=== PATIENT | female | born 1975 | race Caucasian/White ===

== ENCOUNTER 2019-05-03 13:25 | Emergency (ER) | payer BC ==
[2019-05-03] MEDS ORDERED: Ketorolac *IM* INJ* 60 MG/2 ML VIAL IM ONE (15:09)
--- NOTE | 2019-05-03 15:09 | UC ---
Throat Pain/Nasal Alexys HPI - HPI Summary HPI Summary: patient thinks she has a migrane and sinus headache---had aura and onset of usual migraine pain but also has pain in left frontal sinus that is worse when she bends over - History of Current Complaint Chief Complaint: UCHeadache Stated Complaint: SINUS COMPLAINT Time Seen by Provider: 05/03/19 14:58 Hx Obtained From: Patient Hx Last Menstrual Period: IUD ?: No Onset/Duration: Sudden Onset, Lasting Days - 3 Pain Intensity: 7 Pain Scale Used: 0-10 Numeric Cough: None Associated Signs & Symptoms: Positive: Sinus Discomfort - Allergies/Home Medications Allergies/Adverse Reactions: Allergies Allergy/AdvReac Type Severity Reaction Status Date / Time No Known Allergies Allergy Verified 05/03/19 13:50 Home Medications: Home Medications Butalb/Acetaminophen/Caffeine [Dlrxof-Zfngtbns-Drsq 50-325-40] 1 each PO Q4H [History Confirmed 05/03/19] PMH/Surg Hx/FS Hx/Imm Hx Previously Healthy: No Neurological History: Migraine - Surgical History Surgical History: Yes Surgery Procedure, Year, and Place: c-sec X1 - Family History Known Family History: Positive: None - Social History Occupation: Employed Full-time Lives: With Family Alcohol Use: Occasionally Substance Use Type: None Smoking Status (MU): Former Smoker Review of Systems All Other Systems Reviewed And Are Negative: Yes Constitutional: Positive: Negative Skin: Positive: Negative Eyes: Positive: Negative ENT: Positive: Nasal Discharge, Sinus Congestion, Sinus Pain/Tenderness Respiratory: Positive: Negative Cardiovascular: Positive: Negative Gastrointestinal: Positive: Negative Genitourinary: Positive: Negative Motor: Positive: Negative Neurovascular: Positive: Negative Musculoskeletal: Positive: Negative Neurological: Positive: Headache Psychological: Positive: Negative Is Patient Immunocompromised?: No Physical Exam Triage Information Reviewed: Yes Appearance: Well-Appearing, Well-Nourished, Pain Distress - mild-moderate Vital Signs: Initial Vital Signs Temp 98.0 F 05/03/19 13:43 Pulse 77 05/03/19 13:43 Resp 16 05/03/19 13:43 BP 108/70 05/03/19 13:43 Pulse Ox 97 05/03/19 13:43 Vital Signs Reviewed: Yes Eye Exam: Normal Eyes: Positive: Conjunctiva Clear ENT Exam: Normal ENT: Positive: Normal ENT inspection, Hearing grossly normal, TMs normal, Sinus tenderness, Uvula midline. Negative: Nasal congestion, Trismus, Muffled voice, Hoarse voice, Dental tenderness Dental Exam: Normal Neck exam: Normal Neck: Positive: Supple, Nontender, No Lymphadenopathy Respiratory Exam: Normal Respiratory: Positive: Chest non-tender, Lungs clear, Normal breath sounds, No respiratory distress, No accessory muscle use Cardiovascular Exam: Normal Cardiovascular: Positive: RRR, No Murmur, Pulses Normal, Brisk Capillary Refill Musculoskeletal Exam: Normal Musculoskeletal: Positive: Strength Intact, ROM Intact, No Edema Neurological Exam: Normal Neurological: Positive: Alert, Muscle Tone Normal Psychological Exam: Normal Skin Exam: Normal Re-Evaluation - Re-Evaluation First Eval Change: Improved - all pain relieved after tordal shot except for pain in left frontal sinus- Throat Pain/Nasal Course/Dx - Course Course Of Treatment: augmentin, flonase increase fluids rest follow with pcp prn - Differential Dx/Diagnosis Provider Diagnosis: Migraine headache with aura, Sinusitis, acute Discharge ED - Sign-Out/Discharge Documenting (check all that apply): Patient Departure All imaging exams completed and their final reports reviewed: No Studies - Discharge Plan Condition: Stable Disposition: HOME Prescriptions: Amoxicillin/Clavulanate TAB* [Augmentin TAB 875*] 875 mg PO BID #20 tab Fluticasone NASAL SPRAY 50MCG* [Flonase NASAL SPRAY 50MCG*] 2 spray BOTH NARES DAILY #1 btl Patient Education Materials: Sinusitis (ED), Migraine Headache (ED), How to Use Nasal Douglas (ED) Referrals: [facility] [Outside] - If Needed - Billing Disposition and Condition Condition: STABLE Disposition: Home
== END 2019-05-03 15:53 | disposition home or self-care (01) ==
LOC: UCEAST 13:25
DX: G43.109 Migraine with aura, not intractable, without status migrainosus (principal); J01.90 Acute sinusitis, unspecified; Z87.891 Personal history of nicotine dependence
CPT/HCPCS: 99202; G0463; J1885

== ENCOUNTER 2019-06-10 12:29 | Emergency (ER) | payer BC ==
[2019-06-10 12:40] VITALS: BP 97/68
[2019-06-10] MEDS ORDERED: Ketorolac INJ* 30 MG/ML 1 ML VIAL IM ONE (12:49)
[2019-06-10] MEDS ORDERED: Ondansetron ODT TAB* 4 MG SL ONE (12:49)
--- NOTE | 2019-06-10 12:55 | UC ---
Headache HPI - HPI Summary HPI Summary: 44-year-old female who comes in today complaining of a migraine headache. She does have a history of migraines since she was 7 years of age. She has been worked up in [place] with an MRI which showed some white matter on the brain because of the migraines that she's had through the years. She had a migraine recently over the weekend which resolved however has made her feel exhausted. She states this one started and she has some nausea. She has mild tingling in her left hand which is normal for her typical migraine. She states the only thing atypical about this particular migraine is she will usually have an aura of flashing lights than the migraine then the nausea and vomiting where this time she had the migraine and now is having the flashing lights and nausea. She denies any recent injury. She has not yet followed up with a neurologist here in [place] however she is having an appointment with her primary care provider next week with regard to that. - History Of Current Complaint Chief Complaint: UCHeadache Stated Complaint: HEADACHE Time Seen by Provider: 06/10/19 12:36 Hx Obtained From: Patient Hx Last Menstrual Period: IUD ?: No Onset/Duration: Gradual Onset Onset Of Symptoms: Still Present Initially Headache Was: Moderate Currently Pain Is: Moderate Pain Intensity: 10 Timing: Constant Character: Dull, Typical Headache, Migraine Location of Headache: Temporal - Left temporal area is where she always gets her migraine Aggravating Factor(s): Bright Lights Allevating Factor(s): Rest, Medication Associated Signs And Symptoms: Positive: Nausea - Allergies/Home Medications Allergies/Adverse Reactions: Allergies Allergy/AdvReac Type Severity Reaction Status Date / Time No Known Allergies Allergy Verified 05/03/19 13:50 PMH/Surg Hx/FS Hx/Imm Hx Previously Healthy: Yes Neurological History: Migraine - Surgical History Surgical History: Yes Surgery Procedure, Year, and Place: c-sec X1 - Family History Known Family History: Positive: None - Social History Lives: With Family Alcohol Use: Occasionally Substance Use Type: None Smoking Status (MU): Former Smoker Review of Systems All Other Systems Reviewed And Are Negative: Yes Eyes: Positive: Photophobia Neurological: Positive: Headache, Other - Patient states she normally has some tingling in her left hand and distal forearm when she has a migraine. Is Patient Immunocompromised?: No Physical Exam Triage Information Reviewed: Yes Appearance: Well-Appearing, No Pain Distress, Well-Nourished Vital Signs: Initial Vital Signs Temp 97.5 F 06/10/19 12:33 Pulse 85 06/10/19 12:33 Resp 18 06/10/19 12:33 BP 97/68 06/10/19 12:33 Pulse Ox 97 06/10/19 12:33 Vital Signs Reviewed: Yes Eyes: Positive: Conjunctiva Clear, Other: - Noelle, EOMI, negative eye drift ENT: Positive: Pharynx normal, TMs normal, Uvula midline Neck: Positive: Supple, Nontender, No Lymphadenopathy Respiratory: Positive: Lungs clear, Normal breath sounds, No respiratory distress, No accessory muscle use Cardiovascular: Positive: RRR, No Murmur, Pulses Normal, Brisk Capillary Refill Abdomen Description: Positive: Nontender, No Organomegaly, Soft. Negative: CVA Tenderness (R), CVA Tenderness (L), Distended, Guarding, Hepatomegaly, Splenomegaly Bowel Sounds: Positive: Present Musculoskeletal: Positive: Strength Intact, ROM Intact, Other: - Good peripheral pulses, neuro sensation and capillary refill. Good arm and leg strength against resistance. Neurological: Positive: Alert, Muscle Tone Normal - Cranial nerves II through XII are intact, Romberg negative, good heel-to-toe forward and backward, good gobe-en-qnlg bilaterally, normal dystidiokinesis Psychological Exam: Normal Skin Exam: Normal Headache Course/Dx - Course Course Of Treatment: I believe this is this patient's typical migraine. She was given Toradol 30 mg IM which usually causes the migraine to resolve according to the patient. She' s also given Zofran here and a prescription for the same. She is to follow-up with the neurologist for further evaluation and discussion of treatment methods. She was starting to feel better prior to discharge. - Differential Dx/Diagnosis Provider Diagnosis: Migraine Discharge ED - Sign-Out/Discharge Documenting (check all that apply): Patient Departure All imaging exams completed and their final reports reviewed: No Studies - Discharge Plan Condition: Fair Disposition: HOME Prescriptions: Ondansetron TAB* [Zofran 4 MG Tab*] 4 mg PO Q6H PRN #15 tab PRN Reason: Nausea Patient Education Materials: Migraine Headache (ED) Referrals: Chuck Rankin MD [Medical Doctor] - No Primary Care Phys,NOPCP [Primary Care Provider] - Additional Instructions: Rest today, increase fluids, continue your present medications for migraine treatment. Follow-up with the neurologist for further treatment although you may want to keep your appointment with your primary care provider first. If you have any worsening symptoms, change in her normal mental status or continued vomiting your to go to the emergency room for further treatment. - Billing Disposition and Condition Condition: FAIR Disposition: Home
== END 2019-06-10 13:14 | disposition home or self-care (01) ==
LOC: UCEAST 12:29
DX: G43.909 Migraine, unspecified, not intractable, without status migrainosus (principal); H53.149 Visual discomfort, unspecified; Z87.891 Personal history of nicotine dependence
CPT/HCPCS: 96372; 99212; A9270-GY; G0463; J1885

== ENCOUNTER 2019-08-07 19:51 | Emergency (ER) | payer BC ==
--- OUTSIDE RECORDS SUMMARY | 2019-08-07 19:57 | XMS REPORT | Continuity of Care Document ---
:1975 Author Organization [address] [place] [address] Address [address] [place] [address] Phone Care Team Providers Name Role Phone DAVID GORDON MD Unavailable Unavailable Allergies, Adverse Reactions, Alerts Substance Reaction Status Substance Type Unknown WARNIN allergy(ies) could not be collected because the type is not supported. Please contact [facility] for further details. Medications Medication Instructions Dosage Effective Dates Status Comments (start - stop) Topamax 25 mg take 1 by Oral 1 - Active tablet route every bedtime fluoxetine 10 mg take 1 tablet by 10 MG - Active tablet ORAL route every day in the morning omeprazole 20 mg take 1 by Oral 1 - Active tablet,delayed route every day release Chantix Starting take by Oral route Not Available - Active Month Box 0.5 mg (11)-1 mg (42) tablets in dose pack Flonase Allergy spray 1 - 2 spray 50-100 MCG - Active Relief 50 by intranasal mcg/actuation route every day nasal in each nostril as spray,suspension needed Carafate 1 gram take 1 tablet by - Active tablet ORAL route 3 times every day as needed butalbital-acetam take 1 tablet by 1.00 tablet - Active inophen-caffeine oral route every 50 mg-325 mg-40 4 hours as needed mg tablet not to exceed 6 tablets per 24hrs Topamax 25 mg take 1 by Oral 1 - No Longer tablet route every Active bedtime fluoxetine 10 mg take 0.5 tablet by 5 MG - No Longer tablet ORAL route every Active day in the morning Topamax 25 mg take 1 by Oral 1 - No Longer tablet route every Active bedtime fluoxetine 10 mg take 1 by Oral - No Longer capsule route every day Active Problems Condition Effective Dates (start - stop) Clinical Status Intractable migraine with aura without status migrainosus Migraine with aura, not intractable, w/o status migrainosus Adjustment reaction with anxious mood Acute non-recurrent maxillary sinusitis Tobacco use - Gastroesophageal reflux disease with esophagitis Smoking Adjustment reaction with anxious mood Mild intermittent reactive airway disease without complication Acute recurrent maxillary sinusitis Tobacco use - Viral URI Other viral agents as the cause of diseases classified elsewhere Tobacco use - Keratitis secondary to contact lens Corneal disorder due to contact lens, 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, - right eye Elevated blood sugar Mixed dyslipidemia Acute recurrent maxillary sinusitis Tremors of nervous system Migraine with aura, not intractable, without status migrainosus Smoking Acute recurrent maxillary sinusitis Migraine with aura, not intractable, without status migrainosus Gastroesophageal reflux disease without esophagitis Plantar fasciitis Encounter for preventive health examination Procedures Procedure Date Office/outpatient visit,est, mod Results Test Name Date and Time Measure Units Reference Range Abnormal Flag Status Comments Unknown Encounters Encounter Practice Location Reason(s) Diagnoses Date Provider Providers Description For Visit Copied on Encounter 2019 [facility] [employer], Primary [facility] [address] [place], [address]. [address], tel:+ tel: [phone] 2019 - S [employer], Primary DAVIDMillicent [facility] [address] [place], [address]. [address], tel: tel: [phone] Office/outpa 2019 - [facility] care needs Intractable migraine SKIFF tient [employer], Primary (chief with aura without 2- DAVID. [facility] visit,est, Care complaint) status 0 [address] mod [facility] headache migrainosusMigraine [facility] (chief with aura, not [facility] complaint) intractable, w/o [place], [place], [address]. [address], [place] migrainosusAdjustmen tel:+ tel:+60 t reaction with [phone] anxious mood 0001 - S Dec- SKIFF [employer], Primary DAVID. [facility] Care [address] [facility], [facility], [place], [place], [address]. [address], [place] tel:+60 tel:+ [phone] 0001 - S Tex-2 SKIFF Official [employer], Primary DAVID. [facility] Care [address] [facility], [facility], [place], [place], [address]. [address], [place] tel:+60 tel:+ [phone] 0001 - S Acute non-recurrent Tex- UREY [employer], Walk-In maxillary LAURA. Center sinusitisTobacco use [address] [place], [place], [place], [address], [place], [address]. tel:+ tel:+ [phone] 0001 - S May-0 SKIFF [employer], Primary DAVID. [facility] Care [address] [facility], [facility], [place], [place], [address]. [address], [place] tel:+ tel:+ [phone] 0001 - S Gastroesophageal Jun- SKIFF [employer], Primary reflux disease with DAVID. [facility] Care esophagitisSmokingAd [address] [facility] justment reaction [facility] with anxious [facility] moodMild [place], [place], [place], [address]. [address], [place] reactive airway tel:+ tel:+ disease without [phone] complication 0001 - S Bartolo-2 SKIFF [employer], Primary DAVID. [facility] Care [address] [facility], [place], [place], [address]. [address], [place] tel:+ tel:+ [phone] 0001 - S Acute recurrent Feb-2 KONE[employer]AL [employer] Inc, Walk-In maxillary KACZYNSKI Center sinusitisTobacco use 8 FREDY. [facility] [address] [place], [place], [address]. [address], [place] tel:+ tel:+ [phone] 0001 - S Viral URIOther viral Nov- [facility], Primary agents as the cause DAVID. [facility] Care of diseases [address] [facility], [place] elsewhereTobacco use [place], [place], [address]. [address], [place] tel:+ tel: [phone] 0001 - S Keratitis secondary Tex-2 MONTESINOS Official [employer], Walk-In to contact SHAWN. [place] lensCorneal disorder 7 [address] [facility] due to contact lens, [facility], unspecified [facility] eyeCorneal disorder [place], [place], due to contact lens, [place], [address], [place], [address]. tel:+ tel: [phone] 0001 - S Elevated blood Feb-1 [employer] Official [employer], Primary sugarMixed DAVID. [facility] Care dyslipidemia [address] [facility], [place], [place], [address]. [address], [place] tel:+ tel:+ [phone] 0001 - S Acute recurrent Feb-0 [facility], Primary maxillary 9- DAVID. [facility] [address] Care sinusitisTremors of [address] [facility] nervous [facility], [place], [place] systemMigraine with [facility] aura, not [place], [place], [place], [place], [place], [address]. [address], [place] status tel:+ tel:+60 migrainosusSmoking [phone] 0001 - [facility] Acute recurrent LORD MONICA. S Inc, Primary maxillary sinusitis [facility] [[email or web address] [address], [address] [facility] [facility] [address], [place], [place], [address]. [place], [place], tel:+ [phone] [place] [phone] tel:+ [phone] 0001 - [facility] Migraine with aura, EVAN S Inc, Primary not intractable, DAVID. [facility] [address] Care without status [address] [facility] migrainosusGastroeso [facility], [place], [place] phageal reflux [facility] disease without [place], [place], [place], [place], [address]. [address], [place] fasciitisEncounter tel:+ tel:+ for preventive [phone] health examination Family History Family Member Diagnosis Age At Onset Mother Fibromyalgia Immunizations Vaccine Date Status Comments Immunization Unknown Payers Payer name Insurance type Covered alliance party ID Authorization(s) Renetta Marin [id number] Social History Type Description Quantity Date Captured Comments Alcohol Use Details Caffeine Use Details tea and energy drinks 32 oz per day Tobacco Use Status Ex-cigarette smoker Smoking Status Former smoker Smoking Tobacco Use Cigarette: Age Stopped: 44 Cigarette: No Details Available Details Vital Signs Date / Height Weight BMI Pulse Blood Temperature Respiratory Body Head BMI Time: Rate Pressure Rate Surface Circumference percentile Area 60.00 194.45 37.9 80 109/79 14 /min in lbs 8 /min mm[Hg] meter(2) 6:58 kg/m PM eter (2) 99.40 7:03 PM Chief Complaint And Reason For Visit No information Reason For Referral Reason For Referral Unknown Plan Of Care Date Type Action Status Goal Tobacco cessation counseling completed Referral Ordered: ordered KEO GLEZ MD -Neurology (related to Migraine with aura, not intractable , without status migrainosus) Referral Referred To: ordered KEO GLEZ MD [address] [place], [address] [phone] Ordered: Referrals: Neurology. KEO GLEZ MD. Evaluate and treat Appointment date/timeframe: 1 Month Date Type Problem Goal Intervention Status Start Date Unknown History Of Present Illness Encounter Date Complaint History Of Present Illness care needs Visit for migraines. BW 09/03/18. Flu due. headache The severity of the problem is severe. The problem has worsened. The symptoms are recurring. Locations affected include neck. Associated symptoms include blurred vision, dizziness, nausea, phonophobia and visual aura. Associated symptoms additional comments: tooth swelling. Additional information: hx of migraines since 7 year old, [place] showed white matter. has been to walkin 3 times recently for injection to help. in last 2 months, instead of starting with tooth pain, aura then ramping pain, now pain is intense all at once and then aura comes. would like referral to neurologist with [facility]. Functional Status Encounter Date Functional Assessment Cognitive Assessment N/A Normal Orientation Medications Administered Medication Instructions Dosage Effective Dates Status Comments (start - stop) Topamax 25 mg take 1 by Oral route 1 - No Longer tablet every bedtime Active Instructions Date Instruction Additional Information Start fluoxetine 10mg once daily Related to Adjustment reaction with anxious mood Start topamax 25mg once daily Related to Intractable migraine with aura without status migrainosus Cefdinir - Take 1 capsule by oral route Related to Acute non- recurrent every 12 hours for 7 days. Take with maxillary sinusitis food.Flonase - use as directed.Get lots of rest. Maintain good clear fluid intake to stay well hydrated. Frequent handwashing to prevent spread of germs. Please avoid exposure to tobacco smoke and/or polluted air. You can use Otc cough and cold medications such as Sudafed to help with symptoms. Take Tylenol (acetaminophen), Advil (ibuprofen), or Alleve (naproxen) as needed for fever or aches, dosage according to package directions. Please follow-up with your primary care provider within 1 week for recheck. Use the albuterol for a couple weeks. Related to Mild intermittent reactive airway disease without complication Start fluoxetine, 10 mg daily. Related to Adjustment reaction with anxious mood Start omeprazole Use carafate as Related to Gastroesophageal reflux needed.. disease with esophagitis augmentinfluticasone nose sprayfluids, Related to Acute recurrent rest, ibuprofen or tylenol for any maxillary sinusitis fever, aches Thank you for choosing the [facility] Walk In. We hope that you will be feeling better soon.Any condition can change and some diseases may worsen despite proper treatment. Other problems may begin with vague or unusual symptoms and only over time will the problem become more clear, making it possible to arrive at the correct diagnosis. Your visit today is not a substitute for, or an effort to provide complete medical care. In most cases, you should let your primary care doctor check you again. Tell your doctor about any new or lasting problems. If you do not have a primary care provider, you have been given a list today of local providers who are accepting new patients. All x-rays are interpreted by a radiologist, usually within 48 hours. If there is any important difference between the radiologist's interpretation and what you were told today by the provider, you will be notified. If you had cultures done today, results will be available in 72 hours, depending on specimen.- Drink plenty of fluids, rest and stay Related to Other viral agents as warm. use an expectorant the cause of diseases classified elsewhere Please use new drops as directed. Do Related to Keratitis secondary to not wear contact lenses until you see contact lens your eye doctor. We will call with follow-up instructions. Thank you for choosing a [facility] WalkIn. We hope and expect that you will be feeling better soon.Any condition can change and some diseases may worsen despite proper treatment. Other problems may begin with vague or unusual symptoms and only over time will the problem become more clear, making it possible to arrive at the correct diagnosis. Your visit today is not a substitute for, or an effort to provide complete medical care. In most cases, you should let your primary care doctor check you again. Tell your doctor about any new or lasting problems. If you do not have a primary care provider, you have been given a list today of local providers who are accepting new patients. All x-rays are interpreted by a radiologist, usually within 48 hours. If there is any important difference between the radiologist's interpretation and what you were told today by the provider, you will be notified. If you had cultures done today, the results will generally be available within 2-3 days. Discussed approach to quitting. She Related to Smoking will start chantix.. Star cefdinir. drink plenty of fluids. Related to Acute recurrent maxillary sinusitis SMall meal scattered throughout the Related to Tremors of nervous day. system Increase fluids, rest and use the Related to Acute recurrent cefdinir one capsule twice per day for maxillary sinusitis 10 days, call for further needs or concerns. Check on Insurance benefits for Related to Encounter for cholesterol and blood sugar screening. 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 Will refer to podiatry. Related to Plantar fasciitis Continue as needed use of pepcid and Related to Gastroesophageal reflux carafate. Call if there are changes. disease without esophagitis Continue the use of the Paxil for now. Related to Migraine with aura, not intractable, without status migrainosus
--- OUTSIDE RECORDS SUMMARY | 2019-08-07 19:57 | XMS REPORT | Continuity of Care Document ---
:1975 Author Organization [address] [place] [address] Address [address] [phone] Phone Care Team Providers Name Role Phone DAVID GORDON MD Unavailable Unavailable Allergies, Adverse Reactions, Alerts Substance Reaction Status Substance Type Unknown WARNIN allergy(ies) could not be collected because the type is not supported. Please contact [facility] for further details. Medications Medication Instructions Dosage Effective Dates Status Comments (start - stop) fluoxetine 10 mg take 1 tablet by 10 MG - Active tablet ORAL route every day in the morning Topamax 25 mg take 1 by Oral 1 - Active tablet route every bedtime omeprazole 20 mg take 1 by Oral [...] not to exceed 6 tablets per 24hrs fluoxetine 10 mg take 1 tablet by 10 MG - No Longer tablet ORAL route every Active day in the morning fluoxetine 10 mg take 0.5 tablet by 5 MG - No Longer tablet ORAL route every Active day in the morning Topamax 25 mg take 1 by Oral 1 - No Longer tablet route every Active bedtime Problems Condition Effective Dates (start - stop) [...] for preventive health examination Procedures Procedure Date Procedure Unknown Results Test Name Date and Time Measure Units Reference Range Abnormal Flag Status Comments Unknown Encounters Encounter Practice Location Reason(s) Diagnoses Date Provider Providers Description For Visit Copied on Encounter 2019 - [facility] [employer], Primary DAVIDMillicent [facility] [address] [place], [address]. [address], [place] tel: tel: [phone] 2019 [facility] [employer], Primary DAVID. [facility] 33-57 Care [address] [place], [address]. [address], [place] tel: tel: [phone] 2019 [facility] [employer], Primary DAVIDMillicent [facility] 33-57 Care [address] [place], [address]. [address], [place] tel:+ tel:+ [phone] 0001 - S Intractable migraine Cholo-0 [employer], Primary with aura without 2-202 DAVID. [facility] Care status [address] [facility] migrainosusMigraine [facility] with aura, not [facility] intractable, w/o [place], [place], [address]. [address], [place] migrainosusAdjustmen tel:+ tel:+ t reaction with [phone] anxious mood 0001 - S Dec- [employer], Primary 5-201 DAVID. [facility] Care 9 PC [address] [facility], [facility], [place], [place], [address]. [address], [place] tel:+ tel:+ [phone] 0001 - S Tex-2 [employer], Primary 6-201 DAVID. [facility] Care 9 PC [address] [facility], [facility], [place], [place], [address]. [address], [place] tel:+ tel: [phone] [address] [place] [address] Acute non-recurrent Nov- [employer], Walk-In maxillary 6-201 LAURA. Center sinusitisTobacco use 9 [address] [place], [place], [place], [address], [place], [address]. tel: tel: [phone] 0001 - S Gastroesophageal Jun- [employer], Primary reflux disease with 4-201 DAVID. [facility] Care esophagitisSmokingAd [address] [facility] justment reaction [facility] with anxious [facility] moodArld [place], [place], [place], [address]. [address], [place] reactive airway tel:+ tel:+ disease without [phone] complication 2019 - S Dec- [employer], Primary 4-201 DAVID. [facility] Care 8 PC 119 [facility], [place], [place], [place], [address]. [address], [place] tel:+ tel:+ [phone] 0001 - [facility] Acute recurrent Feb-2 [employer], Walk-In maxillary 2- NICKKARLEEALESSANDROI - [place] sinusitisTobacco use 8 FREDY. [facility] [address] [place], [place], [address]. [address], [place] tel:+ tel:+ [phone] 0001 [facility] Viral URIOther viral Nov-2 [facility], Primary agents as the cause DAVID. [facility] Care of diseases 7 PC 119 [facility], [place], [place] elsewhereTobacco use [place], [place], [address]. [address], [place] tel:+ tel: [phone] 0001 - S Keratitis secondary Tex-2 MONT[employer]INOS S Inc, Walk-In to contact - SHAWN. [address] [place] [address] lensCorneal disorder 7 4417 [facility] due to contact lens, [facility], unspecified [facility] eyeCorneal disorder [place], [place], due to contact lens, [place], [address], [place], [address]. tel:+ tel:+ [phone] 0001 - [facility] Elevated blood Feb-1 [facility] [employer], Primary sugarMixed 3-201 DAVID. [facility] - Care dyslipidemia 7 PC 119 [facility], [place], [facility], [place], [place], [address]. [address], [place] tel:+ tel:+ [phone] 0001 [facility] Acute recurrent Feb-0 [facility], Primary maxillary 9- DAVID. [facility] 33-57 Care sinusitisTremors of 7 PC 119 [facility], [place], [place] systemMigraine with [facility] aura, [place], [place], intractable, [place], [address]. [address], [place] status tel: tel: migrainosusSmoking [phone] 0001 - [facility] Acute recurrent Apr- LORD MONICA. S Inc, Primary maxillary sinusitis [facility] [address], [address] [facility] [address], [place], [place], [address]. [place], [place], tel: [phone], [place] [id number] tel: [phone] 0001 - [facility] Migraine with aura, [employer], Primary not intractable, 6201 DAVID. [facility] 33-57 Care without status [address] [facility] migrainosusGastroeso [facility], [place], [place] phageal reflux [facility] disease without [place], [place], [place], [place], [address]. [address], [place] fasciitisEncounter tel: tel: for preventive [phone] health examination Family History Family Member Diagnosis Age At Onset Mother Fibromyalgia Immunizations Vaccine Date Status Comments Immunization Unknown Payers Payer name Insurance type Covered green party ID Authorization(s) Renetta Marin [id number] Social History Type Description Quantity Date Captured Comments Alcohol Use Details Unknown Caffeine Use Details Unknown Tobacco Use Status Unknown Smoking Status Unknown Vital Signs Date / Height Weight BMI Pulse Blood Temperature Respiratory Body Head BMI Time: Rate Pressure Rate Surface Circumference percentile Area Unknown Chief Complaint And Reason For Visit No information Reason For Referral Reason For Referral Unknown Plan Of Care Date Type Action Status Goal Tobacco cessation counseling completed Referral Ordered: ordered KEO GLEZ MD -Neurology (related to Migraine with aura, not intractable , without status migrainosus) Referral Referred To: ordered KEO GLEZ MD [address] [place], [address] [phone] Ordered: Referrals: Neurology. KEO GLEZ MD. Evaluate and treat Appointment date/timeframe: 1 Month Date Type Problem Goal Intervention Status Start Date Unknown History Of Present Illness Encounter Date Complaint History Of Present Illness No information Functional Status Encounter Date Functional Assessment Cognitive Assessment Unknown Medications Administered Medication Instructions Dosage Effective Dates (start - stop) Status Comments Drug Treatment Unknown Instructions Date Instruction Additional Information Start fluoxetine [...] fever, aches Thank you for choosing the [facility] Walk In. We hope that you will [...] follow-up instructions. Thank you for choosing a [facility] WalkIn. We hope and expect that you [...] preventive health examination Will be seeing a furniture delivery driver. Will refer to podiatry. Related to Plantar fasciitis Continue as needed use of pepcid and Related to Gastroesophageal reflux carafate. Call if there are changes. disease without esophagitis Continue the use of the Paxil for now. Related to Migraine with aura, not intractable, without status migrainosus
--- OUTSIDE RECORDS SUMMARY | 2019-08-07 19:57 | XMS REPORT | Continuity of Care Document ---
:1975 Author Organization [address] [place] [address] [address] [phone] Phone Care Team Providers Name Role Phone DAVID GORDON MD Unavailable Unavailable Allergies, Adverse Reactions, Alerts Substance Reaction Status Substance Type Unknown WARNIN allergy(ies) could not be collected because the type is not supported. [facility]. Medications Medication Instructions [...] in the morning fluoxetine 10 mg take 1 by Oral 1 - No Longer capsule route every day [...] Description For Visit Copied on Encounter 2019 [facility] Peak Rx #2, Primary DAVID. [facility] Care 0 PC 119 [facility], [place], [address]. [address], tel: tel: [phone] 2019 [facility] Intractable migraine Peak Rx #2, Primary with aura without DAVID. [facility] Care status 0 PC 119 [facility] migrainosusMigraine [facility] with aura, not [facility] intractable, w/o [place], [place], [place], [address]. [address], [place] migrainosusAdjustmen tel: tel: t reaction with [phone] anxious mood 2019 - S May- Peak Rx #2, Primary [facility] Care 9 PC 119 [facility], [facility], [place], [place], [address]. [address], [place] tel:+ tel:+ [phone] 0001 - S Dec-1 [employer], Primary 5-201 DAVID. [facility] Care 9 PC 119 [facility], [facility], [place], [place], [address]. [address], [place] tel:+ tel:+ [phone] 0001 - S Tex-2 [employer], Primary 6-201 DAVID. [facility] -57 Care 9 PC 119 [facility], [facility], [place], [place], [address]. [address], [place] tel:+ tel:+ [phone] 0001 - S Acute non-recurrent Tex-2 [employer], Walk-In maxillary 6- LAURA. Center sinusitisTobacco use 9 44[address] [place], [place], [place], [address], [place], [address]. tel:+ tel: [phone] 0001 - S May-0 [employer], Primary 7-201 DAVID. [facility] Care 9 PC 119 [facility], [facility], [place], [place], [address]. [address], [place] tel: tel: [phone] 0001 - S Gastroesophageal Jun- [employer], Primary reflux disease with 4-201 DAVID. [facility] 57 Care esophagitisSmokingAd 9 PC 119 [facility] with [place], [place], [place], [address]. [address], [place] reactive airway tel:+ tel:+60 disease without [phone] complication 0001 - S Dec-2 [employer], Primary 4-201 DAVID. [facility] -57 Care 8 PC 119 [facility], [place], [address]. [address], [place] tel:+ tel:+ [phone] 0001 - S Acute recurrent Feb-2 [employer], Walk-In maxillary 2- ROSEALESSANDROI 33-57 Center sinusitisTobacco use 8 FREDY. [facility] [address] [place], [place], [address]. [address], [place] tel:+ tel:+ [phone] 0001 - S Viral URIOther viral Nov-2 [facility], Primary agents as the cause DAVID. [facility] 33 Care of diseases 7 PC 119 [facility] elsewhereTobacco use [place], [place], [address]. [address], [place] tel:+ tel: [phone] 0001 - S Keratitis secondary Tex-2 MONT[employer]OS [employer], Walk-In to contact SHAWN. [address] lensCorneal disorder 7 4417 [facility] due to contact lens, [facility], unspecified [facility] eyeCorneal disorder [place], [place], due to contact lens, [place], [address], [place], [address]. tel:+ tel: [phone] 0001 - S Elevated blood Feb-1 [employer], Primary sugarMixed 3- DAVID. [facility] 33- Care dyslipidemia 7 PC 119 [facility], [facility], [place], [place], [address]. [address], [place] tel:+ tel: [phone] 0001 - S Acute recurrent Feb-0 [employer], Primary maxillary 9- DAVID. [facility] 33-57 Care sinusitisTremors of 7 PC 119 [facility], [place] systemMigraine with [facility] aura, not [place], [place], [place], [address]. [address], [place] status tel: tel: migrainosusSmoking [phone] 0001 - [facility] Acute recurrent Apr- LORD MONICA. S Inc, Primary maxillary sinusitis [facility] 119 33-[address], [address] [facility] [address], [place], [place], [address]. [place], [place], tel: [phone], [place] [id number] tel: [phone] 0001 - [facility] Migraine with aura, [employer], Primary not intractable, DAVID. [facility] 33-57 Care without status 6 PC 119 [facility] migrainosusGastroeso [facility], [place], [place] phageal reflux [facility] disease without [place], [place], [place], [address]. [address], [place] fasciitisEncounter tel: tel: for preventive [phone] health examination Family History Family Member Diagnosis Age At Onset Mother Fibromyalgia Immunizations Vaccine Date Status Comments Immunization Unknown Payers Payer name Insurance type Covered constitution party ID Authorization(s) [facility] [id number] Medicaid [id number] Social History Type Description Quantity Date Captured [...] Referred To: ordered KEO GLEZ MD [address] [place], [phone] Ordered: Referrals: Neurology. KEO GLEZ MD. Evaluate [...] fever, aches Thank you for choosing the [facility] Walk In. We hope that [...] follow-up instructions. Thank you for choosing a [facility] WalkIn. We hope and expect [...] preventive health examination Will be seeing a correctional medicine physician. Will refer to podiatry. Related to Plantar fasciitis Continue as needed use of pepcid and Related to Gastroesophageal reflux carafate. Call if there are changes. disease without esophagitis Aug-16-2016 Continue the use of the Paxil for now. Related to Migraine with aura, not intractable, without status migrainosus
[2019-08-07 20:21] VITALS: BP 107/71
[2019-08-07] MEDS ORDERED: Ondansetron ODT TAB* 4 MG PO ONE (20:53)
[2019-08-07] MEDS ORDERED: Ketorolac INJ* 30 MG/ML 1 ML VIAL IM ONE (20:53)
--- NOTE | 2019-08-07 22:01 | UC ---
Headache HPI - HPI Summary HPI Summary: Patient is a 44-year-old female presenting with migraine that began this morning. Patient describes migraine as pulsing pain that begins in the left side of her jaw and spreads to the left side of her head. Also causes a feeling of numbness on left side of face. Patient states this is her "normal migraine" and she has been having them 3-4 times weekly since she was 8 years old. Denies vision changes. Denies motor weakness. Does note sensitivity to loud sounds. Also notes nausea and vomiting that began this afternoon. Patient states this is also normal for her migraines. States is not the worse headache of her life. States she is seeing a neurologist who has recently increased her Topamax to 50 mg daily to help prevent headaches. She also had an MRI 2 weeks ago which she states was normal. Patient states she was seen here before for similar migraine for which she received Toradol and Zofran and states that that relieved her symptoms. - History Of Current Complaint Chief Complaint: UCHeadache Stated Complaint: MIGRAINE Hx Obtained From: Patient Hx Last Menstrual Period: IUD Pain Intensity: 5 Pain Scale Used: 0-10 Numeric - Allergies/Home Medications Allergies/Adverse Reactions: Allergies Allergy/AdvReac Type Severity Reaction Status Date / Time No Known Allergies Allergy Verified 08/07/19 20:13 Home Medications: Home Medications FLUoxetine* [PROzac*] 10 mg PO DAILY 08/07/19 [History Confirmed 08/07/19] Levonorgestrel (Iud) [Liletta IUD] 18.6 mcg IU ONCE 08/07/19 [History Confirmed 08/07/19] Rizatriptan Benzoate [Rizatriptan] 10 mg PO DAILY PRN 08/07/19 [History Confirmed 08/07/19] Topiramate [Topamax] 50 mg PO BEDTIME 08/07/19 [History Confirmed 08/07/19] PMH/Surg Hx/FS Hx/Imm Hx Neurological History: Migraine - Surgical History Surgical History: Yes Surgery Procedure, Year, and Place: c-sec X1 - Family History Known Family History: Positive: None - Social History Alcohol Use: None Substance Use Type: None Smoking Status (MU): Former Smoker Review of Systems All Other Systems Reviewed And Are Negative: Yes Constitutional: Positive: Negative Eyes: Positive: Negative ENT: Positive: Negative Respiratory: Positive: Negative Cardiovascular: Positive: Negative Gastrointestinal: Positive: Vomiting, Nausea. Negative: Abdominal Pain, Diarrhea Motor: Positive: Negative Neurovascular: Positive: Negative Musculoskeletal: Positive: Negative Neurological/Mental Status: Positive: Headache Physical Exam - Summary Physical Exam Summary: Vital Signs Reviewed: Yes A+Ox3, no distress Eyes: Conjunctiva Clear, SHERRY. EOM intact and full ENT: Hearing grossly normal TM x 2 clear Neck: Positive: Supple Respiratory: Positive: No respiratory distress, No accessory muscle use + CTA throughout no w/r Cardiovascular: RRR nl s1, s2 no m/r abd soft + BS nt/nd no guarding Musculoskeletal Exam: AYALA x 4 without difficulty Strength Intact, ROM Intact Neurological: Positive: Alert, CN II-XII intact, normal gait, negative romberg, negative finger to nose, negative heel to love Psychological: Positive: age appropriate behavior Skin: Positive: no rash, no ecchymosis Vital Signs: Initial Vital Signs Temp 97.7 F 08/07/19 20:15 Pulse 75 08/07/19 20:15 Resp 16 08/07/19 20:15 BP 107/71 08/07/19 20:15 Pulse Ox 98 08/07/19 20:15 Headache Course/Dx - Course Course Of Treatment: Patient is a 44-year-old female presenting with migraine that began this morning. Patient describes migraine as pulsing pain that begins in the left side of her jaw and spreads to the left side of her head. Also causes a feeling of numbness on left side of face. Patient states this is her "normal migraine" and she has been having them 3-4 times weekly since she was 8 years old. Denies vision changes. Denies motor weakness. Does note sensitivity to loud sounds. Also notes nausea and vomiting that began this afternoon. Patient states this is also normal for her migraines. States is not the worse headache of her life. States she is seeing a neurologist who has recently increased her Topamax to 50 mg daily to help prevent headaches. She also had an MRI 2 weeks ago which she states was normal. Patient states she was seen here before for similar migraine for which she received Toradol and Zofran and states that that relieved her symptoms. Patient VS normal and neuro exam WNL. Patient received toradol and zofran, stating relief shortly after receiving medications. Patient noted "very little nausea left over" and states that she will take another 4mg when she gets home. States she has prescription for zofran at home from her neurologist. Patient then asked to be discharged. I instructed patient to contact her neurologist to further discuss recurrent migraines since she does not believe the medication is helping prevent them. INstructed to go to ED with any new or worsening symptoms. Patient voiced understanding and agreed with treatment plan. - Differential Dx/Diagnosis Provider Diagnosis: Migraine headache Discharge ED - Sign-Out/Discharge Documenting (check all that apply): Patient Departure All imaging exams completed and their final reports reviewed: No Studies - Discharge Plan Condition: Stable Disposition: HOME Patient Education Materials: Migraine Headache (ED) Referrals: Mely FLORENCE,Chuck Vazquez [Primary Care Provider] - Additional Instructions: You may continue to take your zofran as directed for nausea. It is recommended that you contact your neurologist to further discuss your migraines, including this one. Go to the emergency room if you experience any new or worsening symptoms. - Billing Disposition and Condition Condition: STABLE Disposition: Home
== END 2019-08-07 21:53 | disposition home or self-care (01) ==
LOC: UCEAST 19:51
DX: G43.909 Migraine, unspecified, not intractable, without status migrainosus (principal); R11.2 Nausea with vomiting, unspecified; Z87.891 Personal history of nicotine dependence
CPT/HCPCS: 96372; 99212; A9270-GY; G0463; J1885